=== PATIENT | female | born 1960 | race Caucasian/White ===

== ENCOUNTER 2021-05-08 08:59 | Emergency (ER) | payer MEDICARE ==
[2021-05-08] MEDS ORDERED: TYLENOL 325 MG PO ONE (09:19)
--- NOTE | 2021-05-08 09:23 | ERPHSYRPT ---
- History of Present Illness Time Seen by Provider: 05/08/21 09:09 Source: patient Exam Limitations: no limitations Physician History: The patient is a 60-year-old female with a past medical history of hypertension, hyperlipidemia and diabetes mellitus presents with a chief complaint of left knee pain secondary to a mechanical fall that occurred around 6:00 this morning. She reportedly slipped on some "pee pads" that were on the floor by her laundry room causing her to slip back and fall against a isolation washer. There is no loss of conscious reported and she stated she felt like her left knee hyperextended as a result of the fall. She has been ambulatory since the fall. She reportedly took two ibuprofen just prior to arrival to the emergency department. She denies taking anticoagulants. She had a secondary complaint of some mild right knee pain and some right elbow pain with a superficial abrasion to the forearm. Pain is currently mild, nonradiating and constant. She states that she got a ride from her son who went to [facility] and is currently not accompanying her in the emergency department. Timing/Duration: today Allergies/Adverse Reactions: No Known Drug Allergies Allergy (Verified 05/08/21 09:21) Home Medications: Aspirin 81 gm Chew [Baby Aspirin 81 mg Chew] 162 mg PO DAILY 05/08/21 [History] Empagliflozin [Jardiance] 10 mg PO DAILY 05/08/21 [History] Hx Tetanus, Diphtheria Vaccination/Date Given: No Hx Influenza Vaccination/Date Given: Yes Hx Pneumococcal Vaccination/Date Given: Yes - Review of Systems Constitutional: No Symptoms Eyes: No Symptoms Ears, Nose, & Throat: No Symptoms Respiratory: No Symptoms, No Cough, No Stridor Abdominal/Gastrointestinal: No Symptoms Musculoskeletal: Fall, Injury, Other (left knee pain and right knee pain, L>R), No Back Pain, No Neck Pain, No Deformity Skin: Other (abrasion, right forearm) Psychological: No Symptoms Endocrine: No Symptoms Hematologic/Lymphatic: No Symptoms All Other Systems: Reviewed and Negative - Past Medical History Neurological History: Peripheral Neuropathy Cardiac History: High Cholesterol, Hypertension, Other Respiratory History: Asthma, COPD Endocrine Medical History: Diabetes Type II Musculoskeletal History: No Pertinent History Other Medical History: Heart murmur, R cataract removal, B diabetic retinopathy, B glaucoma - Past Surgical History Past Surgical History: No - Social History Smoking Status: Former smoker Exposure to second hand smoke: No Drug Use: none Patient Lives Alone: No - Nursing Vital Signs Nursing Vital Signs: Initial Vital Signs Temperature 97.7 F 05/08/21 09:07 Pulse Rate 84 05/08/21 09:07 Respiratory Rate 16 05/08/21 09:07 Blood Pressure 112/71 05/08/21 09:07 O2 Sat by Pulse Oximetry 95 05/08/21 09:07 Pain Scale Pain Intensity 7 - Physical Exam General Appearance: no apparent distress, alert, other (I first laid eyes on the patient when she was walking back from the bathroom. She appeared to be ambulatory and able to walk without difficulty.) Eye Exam: No scleral icterus Ears, Nose, Throat Exam: moist mucous membranes Neck Exam: normal inspection, supple, other (No midline cervical spine tenderness crepitus or step-offs.), No non-tender Respiratory Exam: normal breath sounds, lungs clear, airway intact, other (The patient is able to speak in full sentences.), No respiratory distress Cardiovascular Exam: regular rate/rhythm, normal heart sounds, capillary refill <2 sec, other (ED and PT on left was 2+: Capillary refill is brisk in all toes of the left foot.) Back Exam: normal inspection, other (As above injury noted to the back), No CVA tenderness, No vertebral tenderness, No point tenderness Extremity Exam: normal range of motion, swelling, tenderness, other (Tenderness noted to the left knee, specifically greater to the medial aspect the knee and there appear to be some mild swelling noted to that region as well. She was able to extend the left knee completely. Anterior posterior drawer sign negative. No increased joint laxity with valgus or varus stres), No contusions, No calf tenderness, No deformities, No pedal edema Neurologic Exam: other (Sensation to gross touch intact in the L4, L5 and S1 nerve root distributions of the left foot.), No sensory deficit - Course Nursing assessment & vital signs reviewed: Yes - Radiology Exams Knee X-ray Interpretation: Reviewed by me, No Fracture (Mild suprapatellar left knee effusion with some spurring and medial compartment osteoarthritis) Ordered Tests: Active Orders 24 hr Category Date Time Status Balaji Bandage Application -[facility] STAT Care 05/08/21 10:12 Active KNEE (3 VIEWS) Stat Exams 05/08/21 09:18 Completed Medication Summary Discontinued Medications Generic Name Dose Route Start Last Admin Trade Name Sonali PRN Reason Stop Dose Admin Acetaminophen 975 mg 05/08/21 09:19 05/08/21 09:26 Tylenol 325 Mg PO 05/08/21 09:20 975 mg STAT ONE Administration Acetaminophen Confirm 05/08/21 09:25 Tylenol 325 Mg Administered 05/08/21 09:26 Dose 975 mg .ROUTE .STK-MED ONE - Progress Progress: improved Progress Note: 05/08/21 09:25 Knee exam continue: No increased laxity noted with valgus or varus stressing of the left knee. There is no significant effusion. There is no tenderness to the tibial plateau. Motor function was intact in the left foot. There is no significant tenderness swelling or deformity noted to the right knee. In terms of the right elbow. There is no visible injury and there is no significant tenderness swelling or deformity noted to the right elbow, forearm or wrist. Nontoxic in appearance. I think the working diagnosis at this time is likely a left knee sprain. I have a low suspicion for a knee dislocation. Obtain an x-ray to eval for evidence of fracture of the left knee but I suspect this will likely be normal. She reportedly took some Profen prior to arrival to the emergency department give her a dose of Tylenol given that she currently does not have a ride present with her in the emergency department. If her pain continues to be significant in her transportation is present in the emergency department in the give her a small dose of intranasal fentanyl. I think if her x-ray is negative she can have the knee Balaji wrap and will be instructed to ambulate as tolerated. I will prescribe a short course of [place] to take for pain at home and have her follow-up in the orthopedic/sports medicine clinic. 05/08/21 10:32 I spoke to the patient and her x-ray findings and need to follow-up in the Ortho clinic for further evaluation and management of a knee sprain. An Balaji wrap was provided for comfort and the patient was instructed to weight-bear as tolerated. I sent a short course of [place] and stool softeners to her pharmacy to take as needed for pain but the patient stated she would not fill it because she is got a family "addicts" and would take Tylenol and ibuprofen. Counseled pt/family regarding: diagnosis, need for follow-up, rad results - Departure Departure Disposition: Home Clinical Impression: Left knee sprain, Abrasion of right forearm, Fall, Hx of essential hypertension Condition: Good Critical Care Time: No Referrals: YUSUF KRAUSE [Primary Care Provider] - Instructions: Knee Sprain (DC), Preventing Falls Prescriptions: Sennosides/Docusate Sodium [Senna-Docusate Sodium Tablet] 1 each PO QHS #10 tablet Hydrocodone/APAP 5/325 [[place] 5/325 mg] 1 each PO Q6H PRN PRN #10 tablet MDD 4 PRN Reason: Pain Outpatient Orders: Ortho Referral Time Frame: 1 Day, Facility: [facility], Location: ORTHO CLINIC
[2021-05-08] MEDS ORDERED: TYLENOL 325 MG ONE (09:25)
--- NOTE | 2021-05-08 10:09 | XRAY ---
Exam: 3 views of the left knee from 05/08/2021. Comparison: 3 views of the left knee from 05/31/2009. Indication: 60-year-old female fell; complains of left knee pain. Findings: AP, internal oblique, and lateral radiographs of the left knee were obtained. I see no acute fracture or dislocation. There is mild periarticular bone demineralization. There is minimal narrowing of the medial compartment of the left knee joint space without osteophyte formation. The lateral compartment of the left knee joint space appears unremarkable. The lateral image reveals an unremarkable patellofemoral joint space. There is mild superior left patellar spurring. I cannot exclude a minimal suprapatellar effusion on the lateral radiograph. A small calcified fabella is seen posterior to the left knee. Impression: 1. No acute left knee fracture or dislocation is seen. 2. I believe there is a minimal suprapatellar effusion of the left knee. 3. Early degenerative changes/osteoarthritis of the medial compartment of the left knee joint. There is also mild superior left patellar spurring seen.
[2021-05-08 10:18] VITALS: BP 93/70; PULSE 78; O2SAT 97
== END 2021-05-08 10:35 | disposition home or self-care (01) ==
LOC: ED 08:59
DX: S83.92XA Sprain of unspecified site of left knee, initial encounter (principal); S50.311A Abrasion of right elbow, initial encounter; M25.562 Pain in left knee; M25.521 Pain in right elbow; W01.198A Fall on same level from slipping, tripping and stumbling with subsequent striking against other object, initial encounter; I10 Essential (primary) hypertension; E78.5 Hyperlipidemia, unspecified; E11.9 Type 2 diabetes mellitus without complications
CPT/HCPCS: 73562; 99284; A9270-GY